=== PATIENT | male | born 1960 | race Caucasian/White ===

== ENCOUNTER 2018-07-23 13:53 | Inpatient (IN) | payer MEDICARE ==
[~2018-07-23] VITALS: Ht 175.3 cm; Wt 72.6 kg
[2018-07-23] MEDS ORDERED: ACETAMINOPHEN 325 MG TABLET PO PRN (15:00)
[2018-07-23] MEDS ORDERED: LORAZEPAM 0.5 MG TABLET PO PRN (15:00)
[2018-07-23] MEDS ORDERED: MAGNESIUM HYDROXIDE 30 ML UDC PO PRN (15:00)
[2018-07-23] MEDS ORDERED: TEMAZEPAM 7.5 MG CAPSULE PO PRN (15:00)
[2018-07-23] MEDS ORDERED: MAG HYDROX/AL HYDROX/SIMETH 30 ML UDC PO PRN (15:00)
[2018-07-23 16:00] VITALS: BP 100/71
[2018-07-23] MEDS ORDERED: OMEP20TA20 PO (16:03)
[2018-07-23] MEDS ORDERED: FENO145T35 PO (16:04)
[2018-07-23] MEDS ORDERED: SIMV20TA6 PO (16:04)
[2018-07-23] MEDS ORDERED: METF500T7 PO (16:04)
[2018-07-23] MEDS ORDERED: ASPI-992 PO (16:04)
[2018-07-23] MEDS ORDERED: LISI-607 PO (16:04)
--- NOTE | 2018-07-23 16:08 | NUR ---
GPS/RN-NOTES ADMITTED 58 Y.O MALE PATIENT FROM [facility]. PATIENT WAS ON 5150 HOLD FOR GD ADULT. UPON FACE TO FACE ASSESSMENT PATIENT ALERT TO NAME ONLY,GUARDED ,FLAT AFFECT UNABLE TO ANSWER SIMPLE QUESTION, AMBULATORY WITH STEADY GAIT. PATIENT WAS ORIENTED TO THE UNIT AND UNIT POLICIES . DISCUSS AND REVIEWED PATIENT'S RIGHT WITH PATIENT AND BOOKLET WAS GIVEN TO THE PATIENT. FULL BODY ASSESSMENT AND CONTRABAND DONE. PATIENT STRONGLY REFUSED MRSA SWAB DESPITE EXPLANATIONS HOSPITAL POLICIES STATED" PISS OFF". PATIENT GETS ANGRY. DR. JACKSON WAS IN THE UNIT AND SEEN THE PATIENT WITH ORDERS. DR. WHEATLEY ALSO MADE AWARE OF THE ADMISSION AND WILL RECONCILE PATIENT MEDICATIONS PER CHARGE NURSE. . NO FAMILY TO NOTIFY ON THE ADMISSION.PER RECORD PATIENT WAS LIVING WITH MOTHER BUT THE MOTHER WAS HOSPITALIZED.ALL NEEDS ATTENDED AND ANTICIPATED. WILL CONTINUE MONITORING Q15 MINS. FOR SAFETY AND BEHAVIOR AND WILL ENDORSE TO INCOMING SHIFT FOR CONTINUITY OF CARE.
[2018-07-23] MEDS: CLOZAPINE 100 MG TABLET PO SCH (17:10)
[2018-07-23] MEDS: SIMVASTATIN 20 MG TABLET PO SCH (17:10)
[2018-07-23] MEDS: risperiDONE 1 MG TABLET PO SCH (17:10)
[2018-07-23 20:02] VITALS: BP 85/56
[2018-07-23 20:10] VITALS: BP 106/74
--- NOTE | 2018-07-23 20:40 | NUR ---
RECENT VITALS AROUND 1999, BP 106/74, HR 120 MANUALLY. NO APPARENT DISTRESS NOTED, ANXIOUS AND CONFUSED. WILL CONTINUE TO MONITOR.
[2018-07-23] MEDS: DIVALPROEX SODIUM 500 MG TABLET.DR PO SCH (21:08)
[2018-07-24 07:58] LABS: ALBUMIN 2.9 g/dL (3.4-5.0); BILIRUBIN,TOTAL 0.5 mg/dL (0.2-1.0); CALCIUM, SERUM 9.2 mg/dL (8.5-10.1); CREATININE 1.2 mg/dL (0.6-1.3); POTASSIUM 3.9 mmol/L (3.5-5.1); TOTAL PROTEIN, SERUM 6.4 g/dL (6.4-8.2)
[2018-07-24 08:00] VITALS: BP 100/72
[2018-07-24 08:02] LABS: CHOLESTEROL 163 mg/dL (<200); HDL CHOLESTEROL 35 mg/dL (40-60); LDL 103 mg/dL (0-99); TRIGLYCERIDES 183 mg/dL (30-150)
[2018-07-24] MEDS: PANTOPRAZOLE 40 MG TABLET.DR PO SCH (08:08)
[2018-07-24] MEDS: risperiDONE 1 MG TABLET PO SCH ×2 (08:08→16:24)
[2018-07-24] MEDS: CLOZAPINE 100 MG TABLET PO SCH ×2 (08:09→16:24)
[2018-07-24] MEDS: FENOFIBRATE NANOCRYS (145 MG) 145 MG TABLET PO SCH (08:15)
[2018-07-24] MEDS: METFORMIN XR 500 MG TAB.SR.24H PO SCH (08:15)
[2018-07-24] MEDS: ASPIRIN 325 MG TABLET PO SCH (08:16)
[2018-07-24] MEDS: LISINOPRIL (5MG) 5 MG TABLET PO SCH (08:16)
--- NOTE | 2018-07-24 10:58 | NUR ---
JOANA contacted [address] [address] and spoke with Adeola, pts family preservation caseworker who stated pt needs placement and also stated that pt lives with his mother who is currently hospitalized and is 90 years old and unable to care for pt. Adeola stated she does not know if pts mother is still hospitalized. She also informed SW that pt is uncooperative due to his mental illness and unable to care for himself. JOANA will collaborate with Adeola for discharge planning. JOANA also discussed treatment plan with Adeola.
--- NOTE | 2018-07-24 11:15 | NUR ---
JOANA received a call from Adeola, pts casework manager at [facility] behavioral [address] [address] requesting board and care placement for pt in [place]. JOANA requested pts income which she stated she did not know also JOANA informed Michael that pt is unable to care for himself and most board and cared require pts be semi-independent and also informed her that pts mental illness may be an issue in trying to place him at a board and care. JOANA asked if Adeola knew of any board and cares in [facility] to inform her if not SW will place pt short term at a local SNF. Adeola agreed.
[2018-07-24 16:00] VITALS: BP 100/65
[2018-07-24] MEDS: SIMVASTATIN 20 MG TABLET PO SCH (17:06)
--- NOTE | 2018-07-24 17:51 | NUR ---
RN NOTE: PATIENT AGREED TO MRSA SWAB CULTURE. SAMPLE COLLECTED. AWAITING LAB TO GRANITE CUTTER APPRENTICE SPECIMEN.
[2018-07-24 20:00] VITALS: BP 100/74
[2018-07-24] MEDS: DIVALPROEX SODIUM 500 MG TABLET.DR PO SCH (20:35)
[2018-07-25 08:38] VITALS: BP 98/72
[2018-07-25] MEDS: CLOZAPINE 100 MG TABLET PO SCH ×2 (08:43→16:09)
[2018-07-25] MEDS: PANTOPRAZOLE 40 MG TABLET.DR PO SCH (08:44)
[2018-07-25] MEDS: METFORMIN XR 500 MG TAB.SR.24H PO SCH (08:44)
[2018-07-25] MEDS: risperiDONE 1 MG TABLET PO SCH ×2 (08:44→16:09)
[2018-07-25] MEDS: FENOFIBRATE NANOCRYS (145 MG) 145 MG TABLET PO SCH (08:44)
[2018-07-25] MEDS: ASPIRIN 325 MG TABLET PO SCH (08:45)
[2018-07-25] MEDS: LISINOPRIL (5MG) 5 MG TABLET PO SCH (08:46)
--- NOTE | 2018-07-25 08:46 | NUR ---
GROUP NOTE: JOANA prompted pt to participate in group, pt remained with his eyes closed and did not acknowledge SW. Addendum: 07/25/18 at 0849 by PIOTR BERNARD GROUP date was 07/24/18 at 2:00pm.
--- NOTE | 2018-07-25 10:02 | NUR ---
INITIAL DISCHARGE PLAN: Juan Pablo Mir, pts rehabilitation caseworker, with [address] [address] . Pts needs SNF or board and care placement as pts mother is elderly and unable to care for pt. SW will help form a safe and proper discharge in collaboration with .
--- NOTE | 2018-07-25 14:20 | NUR ---
APS: JOANA received a call from Vale KUMAR manager social responsibility [phone] who informed SW that pts mother is still in a coma and has not woken up and does not if she will. She mentioned that she would be following up with SW on Saturday or Saturday of next week to discuss pts discharge plan.
[2018-07-25 16:00] VITALS: BP 142/67
[2018-07-25] MEDS: SIMVASTATIN 20 MG TABLET PO SCH (17:08)
[2018-07-25 20:00] VITALS: BP 102/72
[2018-07-25] MEDS: DIVALPROEX SODIUM 500 MG TABLET.DR PO SCH (21:57)
[2018-07-26 08:00] VITALS: BP 100/77
[2018-07-26] MEDS: FENOFIBRATE NANOCRYS (145 MG) 145 MG TABLET PO SCH (08:35)
[2018-07-26] MEDS: CLOZAPINE 100 MG TABLET PO SCH ×2 (08:35→16:58)
[2018-07-26] MEDS: PANTOPRAZOLE 40 MG TABLET.DR PO SCH (08:35)
[2018-07-26] MEDS: METFORMIN XR 500 MG TAB.SR.24H PO SCH (08:36)
[2018-07-26] MEDS: risperiDONE 1 MG TABLET PO SCH ×2 (08:36→16:58)
[2018-07-26] MEDS: ASPIRIN 325 MG TABLET PO SCH (08:36)
[2018-07-26] MEDS: LISINOPRIL (5MG) 5 MG TABLET PO SCH (08:37)
[2018-07-26 16:00] VITALS: BP 100/76
[2018-07-26] MEDS: SIMVASTATIN 20 MG TABLET PO SCH (16:58)
[2018-07-26 20:00] VITALS: BP 105/75
[2018-07-26] MEDS: DIVALPROEX SODIUM 500 MG TABLET.DR PO SCH (20:48)
[2018-07-27 08:00] VITALS: BP 100/72
[2018-07-27] MEDS: METFORMIN XR 500 MG TAB.SR.24H PO SCH ×2 (08:29→17:10)
[2018-07-27] MEDS: ASPIRIN 325 MG TABLET PO SCH (08:29)
[2018-07-27] MEDS: risperiDONE 1 MG TABLET PO SCH ×2 (08:29→17:09)
[2018-07-27] MEDS: FENOFIBRATE NANOCRYS (145 MG) 145 MG TABLET PO SCH (08:29)
[2018-07-27] MEDS: PANTOPRAZOLE 40 MG TABLET.DR PO SCH (08:29)
[2018-07-27] MEDS: CLOZAPINE 100 MG TABLET PO SCH ×2 (08:29→17:09)
[2018-07-27] MEDS: LISINOPRIL (5MG) 5 MG TABLET PO SCH (08:30)
[2018-07-27 16:00] VITALS: BP 105/76
[2018-07-27] MEDS: DIVALPROEX SODIUM 500 MG TABLET.DR PO SCH (21:09)
[2018-07-27 21:39] VITALS: BP 104/73
[2018-07-28] MEDS: PANTOPRAZOLE 40 MG TABLET.DR PO SCH (07:38)
[2018-07-28] MEDS: LISINOPRIL (5MG) 5 MG TABLET PO SCH (08:05)
[2018-07-28] MEDS: FENOFIBRATE NANOCRYS (145 MG) 145 MG TABLET PO SCH (08:05)
[2018-07-28] MEDS: CLOZAPINE 100 MG TABLET PO SCH ×2 (08:05→16:58)
[2018-07-28] MEDS: METFORMIN XR 500 MG TAB.SR.24H PO SCH ×2 (08:06→16:58)
[2018-07-28] MEDS: risperiDONE 1 MG TABLET PO SCH ×2 (08:06→16:58)
[2018-07-28] MEDS: ASPIRIN 325 MG TABLET PO SCH (08:06)
[2018-07-28 09:18] VITALS: BP 100/72
--- NOTE | 2018-07-28 09:57 | NUR ---
GPS Nurse's Note Remain lying down in bed isolative refusing to come out of his room A/O x1 remains confused grooming is unkempt Denies SI.HI, VH or A/H needs coding assistant adl's side rails up. Denies of any distress.
--- NOTE | 2018-07-28 10:31 | NUR ---
Group Note: Pt is unable to participate in group therapy due to being developmentally disabled and delusional. Addendum: 07/28/18 at 1036 by MARQUEZ BERNARD July AT 3PM.
--- NOTE | 2018-07-28 15:30 | NUR ---
GROUP NOTE: Pt is in overflow and unable to participate in group therapy due to being developmentally disabled and delusional.
[2018-07-28 16:00] VITALS: BP 100/57
[2018-07-28 20:00] VITALS: BP 124/54
--- NOTE | 2018-07-28 20:55 | NUR ---
RN GPS OPENING NOTES RECEIVED PATIENT IN BED AWAKE, ALERT TO SELF ONLY. CONFUSED. LIMITED WITH WORDS. FLAT AFFECT. BREATHING EVEN AND UNLABORED. NO SOB NOTED. TOLERATING ROOM AIR. NO COMPLAINTS OF PAIN OR DISCOMFORT. NO FACIAL GRIMACING. NO IV PER GPS PROTOCOL. SKIN DRY AND WARM TO TOUCH. AFEBRILE. SITTER AT BEDSIDE. ALL OTHER NEEDS MET. SAFETY MEASURES IN PLACE. CALL LIGHT WITHIN REACH. WILL CONTINUE TO MONITOR.
[2018-07-28] MEDS: DIVALPROEX SODIUM 500 MG TABLET.DR PO SCH (22:05)
--- NOTE | 2018-07-29 06:40 | NUR ---
RN GPS CLOSING NOTES PATIENT RESTING IN BED. NO ACUTE CHANGES THROUGHOUT SHIFT. BREATHING EVEN AND UNLABORED. NO SOB NOTED. TOLERATING ROOM AIR. NO COMPLAINTS OF PAIN OR DISCOMFORT. NO FACIAL GRIMACING. NO IV PER GPS PROTOCOL. SITTER AT BEDSIDE. ALL OTHER NEEDS MET. SAFETY MEASURES IN PLACE. CALL LIGHT WITHIN REACH. WILL ENDORSE TO ONCOMING NURSE FOR RIN.
--- NOTE | 2018-07-29 07:45 | NUR ---
MS/RN Patient received Patient received from maintenance technician 3rd shift. GPS overflow status, calm and cooperative, no behavior concerns. Will continue to monitor and ensure safety.
[2018-07-29 08:00] VITALS: BP 92/61
[2018-07-29] MEDS: ASPIRIN 325 MG TABLET PO SCH (08:33)
[2018-07-29] MEDS: CLOZAPINE 100 MG TABLET PO SCH ×2 (08:33→17:36)
[2018-07-29] MEDS: FENOFIBRATE NANOCRYS (145 MG) 145 MG TABLET PO SCH (08:33)
[2018-07-29] MEDS: risperiDONE 1 MG TABLET PO SCH ×2 (08:33→17:36)
[2018-07-29] MEDS: PANTOPRAZOLE 40 MG TABLET.DR PO SCH (08:33)
[2018-07-29] MEDS: LISINOPRIL (5MG) 5 MG TABLET PO SCH (08:36)
--- NOTE | 2018-07-29 08:46 | NUR ---
JOANA faxed SNF referral to [facility] Address: [address] [facility], [place] [address] for review.
[2018-07-29] MEDS: METFORMIN XR 500 MG TAB.SR.24H PO SCH ×2 (09:00→17:36)
--- NOTE | 2018-07-29 11:04 | NUR ---
MS/RN Rounds Patient has remained calm and cooperative throughout the morning. No behavior concerns this morning. Compliant with medications.
--- NOTE | 2018-07-29 12:46 | NUR ---
SW received a call from Malorie, program proposals coordinator at [facility] Address: [address] [place] [address] stating pt has been accepted to the facility.
--- NOTE | 2018-07-29 12:48 | NUR ---
APS: JOANA received a call from Vale KUMAR social work lecturer [phone] who informed SW that pts mother has been discharged from the hospital and was discharged to a SNF in [place], Vale stated that she attempted to locate mother and was informed that she eloped from the SNF and returned back to her home. Shanna also mentioned that pts mother wants pt to return home with her. JOANA informed JOSÉ BERNARD that pt has been accepted to [facility] and has an anticipated D/C date for Saturday/. Vale mentioned that she will attempt to talk to pts mother and explain that pt needs to discharge to a SNF short term to allow her to recuperate as pts mother just had a stroke and is unable to care for pt.
--- NOTE | 2018-07-29 12:57 | NUR ---
JOANA received a call from Yeni, human services case manager at [address] [address] who stated that pts mother was with her and wanted to speak with pt. Yeni also informed SW that mother and APS were going to have a meeting later today to discuss placement for pt. JOANA transferred the call to the overflow unit to speak with pt.
--- NOTE | 2018-07-29 13:39 | NUR ---
MS/RN Behavior Calm and cooperative, no concerns at this time.
[2018-07-29 16:00] VITALS: BP 104/77
[2018-07-29] MEDS: SIMVASTATIN 20 MG TABLET PO SCH (17:36)
--- NOTE | 2018-07-29 18:12 | NUR ---
NURSING NOTE PT WAS TRANSFERRED TO GPS FROM [facility]. REPORT WAS GIVEN BY RN. PT IS CALM, COOPERATIVE, NO S/S OF ANY DISTRESS NOTED. WILL CONTINUE TO MONITOR FOR SAFETY.
--- NOTE | 2018-07-29 18:15 | NUR ---
MS/tank riveter Patient transfused to room 220-A in stable condition. All needs attended, report given to GPS nurse.
[2018-07-29 20:00] VITALS: BP 97/68
[2018-07-29 22:22] VITALS: BP 100/62
--- NOTE | 2018-07-29 22:22 | NUR ---
RN NOTES BP rechecked- 100/62, HR- 96. Not in any distress. Will continue to monitor
[2018-07-29] MEDS: DIVALPROEX SODIUM 500 MG TABLET.DR PO SCH (22:23)
[2018-07-30 08:00] VITALS: BP 100/64
--- NOTE | 2018-07-30 08:20 | NUR ---
APS: JOANA received a call from Vale KUMAR clinical social work therapist [phone] stating that she met with pts mother yesterday and discussed pts discharge plan. Vale stated that pts mother really wants pt to return home but she also mentioned that pts mother presents with cognitive impairment as she does not remember that she has had 3 strokes and also does not remember that she was hospitalized or why pt had been hospitalized. JOANA explained that pt has been accepted to a SNF in [place] and that his discharge was scheduled for 07/31/18. Vale stated that she would like for SW to fax a referral to [facility] as it is close to pts home. JOANA stated that she would fax referral. Vale also mentioned that pts mother is receiving help from her neighbor who is working on getting a caregiver for pt at home. JOSÉ BERNARD stated that if pts mother is able to get a caregiver by tomorrow if it would be okay to discharge pt home. JOANA explained that placement would be short term but would discuss with leather products supervisor if discharging pt home with a caregiver would be a safe discharge. APS JOANA stated that she would be contacting JOANA later today to discuss pts discharge.
[2018-07-30] MEDS: risperiDONE 1 MG TABLET PO SCH ×2 (08:59→16:47)
[2018-07-30] MEDS: METFORMIN XR 500 MG TAB.SR.24H PO SCH ×2 (08:59→16:47)
[2018-07-30] MEDS: FENOFIBRATE NANOCRYS (145 MG) 145 MG TABLET PO SCH (08:59)
[2018-07-30] MEDS: LISINOPRIL (5MG) 5 MG TABLET PO SCH (09:00)
[2018-07-30] MEDS: CLOZAPINE 100 MG TABLET PO SCH ×2 (09:00→16:47)
[2018-07-30] MEDS: ASPIRIN 325 MG TABLET PO SCH (09:01)
[2018-07-30] MEDS: PANTOPRAZOLE 40 MG TABLET.DR PO SCH (09:02)
--- NOTE | 2018-07-30 09:03 | NUR ---
JOANA faxed SNF referral to Admissions Department at [facility] Address: [address], [place] [address] /[phone] for review.
--- NOTE | 2018-07-30 09:37 | NUR ---
SW contacted Lizz, immigration coordinator at at [facility] Address: [address] [place] [address] who stated pt was not accepted to the facility.
--- NOTE | 2018-07-30 09:40 | NUR ---
APS: JOANA contacted Vale KUMAR social services manager [phone] and informed her [facility] did not accept pt, JOANA also informed her that per [employer] it is not a safe discharge to discharge pt back home with his mother at the moment as pts mother is showing signs of cognitive impairment and was just discharged from the hospital and AMA'ed from the SNF she was discharged to from the hospital. JOANA explained that pts mother is able to pick pt from the fpc at any time. JOANA informed her that it can be a hospital liability to discharge pt home knowing pts mother has had 3 strokes in the past week and is unable to care for pt. Shanna agree and stated she would be contacting pts mother to inform her pt will be discharged to [facility] 07/31/18.
--- NOTE | 2018-07-30 09:45 | NUR ---
RN NOTE: 0900 LISINOPRIL HELD D/T BP 99/72
--- NOTE | 2018-07-30 11:50 | NUR ---
RN NOTE: WAS CONTACTED BY OSMAR ANDERSON FROM [facility] REGARDING THE PATIENT TAKING CLOZAPINE IN ADJUNCTION WITH LABS (CBC W/ DIFF) Q [address] JACKSON TO INFORM HIM OF WHAT I WAS TOLD AND HE ORDERED LABS. UPON REVIEWING THE PATIENT'S CHART, DANICA HERNANDEZ REQUESTED PARAMETERS PERTAINING THE MEDICATION IN REGARDS TO LABS. CONTACTED OSMAR ANDERSON FROM [facility] AND LEFT A MESSAGE. AWAITING CALL BACK.
[2018-07-30 12:54] LABS: BASOPHILS % (AUTO) 1.3 % (0.0-2.0); EOSINOPHILS % (AUTO) 4.5 % (0.0-6.0); HEMATOCRIT 39 % (39-51); HEMOGLOBIN 13.2 g/dL (13.5-17.5); LYMPHOCYTES # (AUTO) 1.1 /CMM (0.8-4.8); LYMPHOCYTES % (AUTO) 28.6 % (20.0-44.0); MEAN CORPUSCULAR HGB CONC 34 g/dl (31.0-36.0); MEAN CORPUSCULAR VOLUME 91 fL (80-96); MONOCYTES # (AUTO) 0.4 /CMM (0.1-1.30); MONOCYTES % (AUTO) 9.9 % (2.0-12.0); NEUTROPHILS # (AUTO) 2.1 /CMM (1.8-8.9); NEUTROPHILS % (AUTO) 55.7 % (43.0-81.0); PLATELET COUNT (AUTO) 151 /CMM (150-450); RED BLOOD CELL COUNT(AUTO) 4.32 MIL/uL (4.5-6.0); WHITE BLOOD COUNT (AUTO) 3.8 K/uL (4.3-11.0)
--- NOTE | 2018-07-30 12:58 | NUR ---
RN NOTE: SPOKE TO JUSTIN FROM [facility] REGARDING THE FOLLOW UP DANICA CHINCHILLA HAD ABOUT THE PARAMETERS FOR CLOZAPINE. I WAS INFORMED THE ANC HAS TO BE >1500 AND IF IT'S BELOW TO FOLLOW THE NATIONAL PROTOCOL. [facility] GPS FAX NUMBER WAS PROVIDED TO RETRIEVE INFORMATION ABOUT THE PROTOCOL FOR THIS MEDICATION. RENÉE WAS CONTACTED, AWAITING REPLY TO INFORM HER OF THE INFORMATION. Addendum: 07/30/18 at 1324 by BRYON CALLAWAY RN CORRECTION: DANICA HERNANDEZ CONTACTED (NOT RENÉE)
--- NOTE | 2018-07-30 13:43 | NUR ---
RN NOTE: DAVID INFORMED OF PATIENT'S ANC LEVEL OF 2.1
--- NOTE | 2018-07-30 15:27 | NUR ---
GROUP NOTE: Pt was present and sat in group but was unable to engage in conversation as pt is impaired due to his mental illness. Pts thought process is circumstantial and speech is mumbled.
[2018-07-30 16:00] VITALS: BP 100/77
[2018-07-30] MEDS: SIMVASTATIN 20 MG TABLET PO SCH (17:56)
[2018-07-30 20:00] VITALS: BP 108/76
[2018-07-30 20:32] VITALS: BP 108/76
[2018-07-30] MEDS: DIVALPROEX SODIUM 500 MG TABLET.DR PO SCH (22:07)
[2018-07-31] MEDS: ASPIRIN 325 MG TABLET PO SCH (08:22)
[2018-07-31] MEDS: METFORMIN XR 500 MG TAB.SR.24H PO SCH (08:23)
[2018-07-31] MEDS: CLOZAPINE 100 MG TABLET PO SCH (08:23)
[2018-07-31] MEDS: FENOFIBRATE NANOCRYS (145 MG) 145 MG TABLET PO SCH (08:23)
[2018-07-31] MEDS: PANTOPRAZOLE 40 MG TABLET.DR PO SCH (08:24)
[2018-07-31] MEDS: risperiDONE 1 MG TABLET PO SCH (08:24)
[2018-07-31] MEDS: LISINOPRIL (5MG) 5 MG TABLET PO SCH (08:26)
[2018-07-31 08:29] VITALS: BP 100/69
--- NOTE | 2018-07-31 09:55 | NUR ---
DR. JACKSON GAVE AN ORDER TO D/C HOLD AN D/C TO [facility] AND TO FOLLOW UP WITH PSYCH AND MEDICAL DOCTORS.
--- NOTE | 2018-07-31 11:19 | NUR ---
DISCHARGE NOTE: Pt will be discharged at 1:00pm via [facility] ambulance trip #[id number] to [facility] Address: [address] [place] [address] . Pts APS social worker health services Vale [phone] has been notified and agrees with discharge plan. Pts mood was euthymic with congruent affect. Pt denied suicidal/homicidal ideations and denied visual/auditory hallucinations. Pt will be under the care of Psychiatrist: Dr. Wallace Address: [address] [place] [address] and Coding Quality Coordinator: Dr. Juana Sheppard [address] [address] [phone]. The multidisciplinary exit care form was done, printed, signed, and given to the patient.
--- NOTE | 2018-07-31 14:52 | NUR ---
FOOD OPERATIONS MANAGER NOTE: PATIENT IS A 71 YEAR OLD MALE DISCHARGED TO [facility]. [address] [place] [address] . PATIENT IS ALERT AND ORIENTED X 1, IN STABLE CONDITION. SKIN INTACT. VSS. COMPLIANT WITH MEDICATION MANAGEMENT AND PLAN OF CARE. PATIENT IS CALM AND COOPERATIVE. NO COMPLAINTS NOTED. NO SIGNS OF ACUTE DISTRESS. PATIENT DENIES SI/HI, AUDITORY OR TACTILE HALLUCINATIONS AT THE TIME OF DISCHARGE. PATIENT PORTRAYS NO SIGNS OF AGGRESSIVE BEHAVIOR. MEDICAL TREATMENT PLAN DEFERRED FOR CONTINUAL MONITORING. EXIT CARE PROVIDED TO THE PATIENT AND FOR THE FACILITY TO OBTAIN. BELONGING WERE RETURNED TO THE PATIENT. MEDICATIONS RECONCILED WITH DR. JACKSON AND DANICA HERNANDEZ. SNF WAS CONTACTED AND REPORT WAS GIVEN TO RN FOR THE CONTINUITY OF CARE. PATIENT REFUSED TO SIGN PAPERWORK. AMBULANCE TRANSFERRED PATIENT IN A GURNEY AND LEFT THE UNIT AT 13:45.
== END 2018-07-31 13:45 | DRG 885 ==
LOC: GPS 13:53 → GPSOV2 07-28 18:49 → GPS 07-29 18:07
PROVIDERS: ADMIT Psychiatry & Neurology Psychiatry; ATTEND Internal Medicine
DX: F20.0 Paranoid schizophrenia (principal); E11.9 Type 2 diabetes mellitus without complications; E78.5 Hyperlipidemia, unspecified; F39 Unspecified mood [affective] disorder; I10 Essential (primary) hypertension; Z79.899 Other long term (current) drug therapy; Z73.6 Limitation of activities due to disability; I95.9 Hypotension, unspecified
CPT/HCPCS: 36415; 80053-TC; 80061-TC; 85025-TC; 87081-TC